=== PATIENT | female | born 1980 | race Caucasian/White ===

== ENCOUNTER 2020-12-24 14:20 | Outpatient (CLI) | payer OTHER, SELFPAY ==
--- NOTE | ~2020-12-24 | MR_ITS ---
EXAMINATION: MR cervical spine wo con EXAM DATE: 12/24/2020 15:06 INDICATION: Cervical spinal stenosis, cervicalgia cervical spinal stenosis . Left arm numbness. Neck pain. TECHNIQUE: Multi-sequential, multiplanar MR images of the cervical spine were obtained without contra st. Axial T2, axial T2 MERGE sequence. Sagittal T1, T2, T2 fat saturation images also obtained. Th ere is no prior study for comparison. FINDINGS: Mild to moderate disc disease C4-5. The vertebral body and disc heights are otherwise well maintained. The vertebral bodies are aligned in the AP dimension. The spinal cord signal intensity a nd intrinsic morphology is normal. Cervicomedullary junction is normal in appearance. There are no kay spicious marrow signal abnormalities. Level by level evaluation: C2-C3: Disc does not extend beyond the endplate margin. Uncovertebral joint arthropathy: None. Facet joint arthropathy: Mild. Neural foraminal stenosis: No stenosis. Central canal stenosis: No stenosis. C3-C4: There is a mild diffuse disc bulge. Uncovertebral joint arthropathy: Mild to moderate bilateral. Facet joint arthropathy: Mild. Neural foraminal stenosis: Mild bilateral. Central canal stenosis: No stenosis. C4-C5: [id number] Uncovertebral joint arthropathy: Moderate bilateral. Facet joint arthropathy: Mild bilateral. Neural foraminal stenosis: Moderate to severe left, moderate right. Central canal stenosis: Mild. C5-C6: Disc does not extend beyond the endplate margin. Uncovertebral joint arthropathy: Moderate left, mild right. Facet joint arthropathy: Mild bilateral. Neural foraminal stenosis: Moderate left. Central canal stenosis: No stenosis. C6-C7: Disc does not extend beyond the endplate margin. Uncovertebral joint arthropathy: Mild to moderate right, mild left. Facet joint arthropathy: Mild bilateral. Neural foraminal stenosis: Mild to moderate right. Central canal stenosis: No stenosis. C7-T1: Disc does not extend beyond the endplate margin. Uncovertebral joint arthropathy: Moderate bilateral. Facet joint arthropathy: Mild bilateral. Neural foraminal stenosis: Moderate right, mild to moderate left. Central canal stenosis: No stenosis. IMPRESSION: Arthropathy causing neural foraminal stenosis most narrowed at C3-4 Reviewed, dictated and finalized at location G.
== END 2020-12-24 14:21 ==
PROVIDERS: PCP Family Medicine; Visit Provider Nurse Practitioner Family
DX: M48.02 Spinal stenosis, cervical region (principal); M54.2 Cervicalgia
CPT/HCPCS: 72141